=== PATIENT | female | born 1985 | race Two or more races ===

== ENCOUNTER → 2017-12-19 13:00 | Outpatient (CLI) | payer OTHER, SELFPAY ==
[2017-12-20 14:18] LABS: Chlamydia Trachomatis by PCR Negative (Negative); Neisserai gonorrhoeae by PCR Negative (Negative)
[2017-12-20 14:19] LABS: Probe Check PASS; Sample Adequacy Control PASS; Specimen Processing Control PASS
== END ==
PROVIDERS: Visit Provider Obstetrics & Gynecology
DX: Z36.85 Encounter for antenatal screening for Streptococcus B (principal)
CPT/HCPCS: 87491; 87591

== ENCOUNTER → 2018-07-05 17:22 | Outpatient (CLI) | payer OTHER, SELFPAY | PROVIDERS: Family Provider Family Medicine; PCP Family Medicine; Referring Provider Obstetrics & Gynecology; Visit Provider Obstetrics & Gynecology | DX: Z36.85 Encounter for antenatal screening for Streptococcus B (principal) | CPT/HCPCS: 87077; 87081; 87186 ==

== ENCOUNTER 2018-08-07 15:30 | Inpatient (IN) | payer SELFPAY, OTHER ==
[2018-08-07 15:40] VITALS: BMI 37.8
[2018-08-07] MEDS: Lactated Ringers 1,000 ML 50 ML IV (15:57)
[2018-08-07] MEDS: Oxytocin 30 units/NS 500 ml 30 UNITS/500 ML IV.SOLN IV (16:15)
[2018-08-07 16:25] LABS: Hematocrit 35.6 % (37-47); Hemoglobin 11.7 g/dl (12.0-15.0); Mean Corp Hgb Conc 32.9 g/gl (32-36); Mean Corpuscular Hgb 29.5 pg (27.0-32.0); Mean Corpuscular Volume 89.7 fL (81-99); Mean Platelet Vol. 10.2 fl (6.2-12.0); Platelet Count 268 K/mm3 (150-450); RBC Distribution Width CV 14.6 % (11.6-14.6); RBC Distribution Width SD 47.9 fl (35.1-43.9); Red Blood Count 3.97 M/mm3 (4.2-5.4); White Blood Count 9.7 K/mm3 (4.4-11.0)
[2018-08-07 16:26] LABS: Scan Indicated on CBC? Y/N NO
[2018-08-07 17:32] LABS: Prothrombin Time (Protime)PT. 13.4 SECONDS (11.7-14.9)
[2018-08-07 17:33] LABS: Partial Thromboplast Time 31.2 Seconds (24.1-36.2)
[2018-08-07 18:10] LABS: Protein, Urine (Random) 13.5 mg/dL (<11.9); Protein:Creat Ratio 122 mg/g CRE (0-200)
[2018-08-07 18:11] LABS: AST(SGOT) 18 U/L (15-37); Alanine Aminotransfer ALT/SGPT 19 U/L (13-56); Creatinine, Serum 0.68 mg/dL (0.55-1.02); EST Glomerular Filtration Rate 104 mL/min (>60); Est Glom Filt Rate - Afr Amer 126 mL/min (>60); Estimated Creatinine Clearance 95.52 ml/min; Uric Acid 5.3 mg/dL (2.6-6.0)
--- NOTE | 2018-08-07 20:20 | PCM.PN.BLA ---
Progress Note LABOR PROGRESS NOTE 40 4/7 wk female. Pitocin induction, AROM for PIH. Sitting up in rocking chair, appears comfortable States not feeling UCs. Open to epidural later but uncertain re plans for pain relief and will decide later AVSS BP 136/90 Pitocin @ 1 mIU, increasing prn to up to 10 mIU/min Labs reviewed WNL. AST/ALT wnl. Cr 0.7 Protein:Cr 122. Plts 268K IFM: 130-140s avg variability Accels. Occasional early decel noted, occasional variable. Irregular UCs. Mild, by IUPC. A/P: 40 4/7 wk induction PIH Category I tracing. Continue low dose pitocin overnight. Watch progress.
[2018-08-08] VITALS (12 sets, daily range): BP systolic 112–146; BP diastolic 62–98; PULSE 83–111; RESP 13–18; TEMP 36.9–37.4; O2SAT 96–100
--- NOTE | 2018-08-08 01:55 | PCM.PN.BLA ---
Progress Note LABOR PROGRESS NOTE Induction 40 5/7 wk PIH Pitocin at 7 mIU/min AVSS BP 146/99 IFM: 130-140 avg variability. Accels to 150s. UCs q 2-4 mins A/P: Catgory I tracing, HTN. Continue pitocin
[2018-08-08] MEDS: Lactated Ringers 1,000 ML 50 ML IV (11:23)
--- NOTE | 2018-08-08 17:10 | PCM.PN.OB ---
Subjective: Patient has progressed to 4-5 cm, 70% effaced and -2 station despite Pitocin at up to 20 mIU/min since early this morning. Cervix is unchanged versus exam at 1130 this morning so no change has been noted in 5-1/2-6 hours. Contractions are minimal despite 20 units of Pitocin and giving a 30-minute Pitocin rest mid afternoon. heart tones are reactive. No maternal fever is noted. Maternal exhaustion is present. Blood pressures have been intermittently elevated to the 140-50s over 90s but for the most part they are in the normal range. macrosomia and possible CPD suspected. I discussed the situation with the patient and her and given no prospect of delivery anytime soon we plan to proceed with section for failure to progress. I have discussed the risk and indications of this procedure including the possibility of bleeding, infection, and injury to surrounding structures such as bowel bladder and patient and her desire that we proceed. - Physical Exam Weight: 213 lb 13.574 oz Body Mass Index (BMI) 37.8 Intake and Output for Last 24 Hours 08/06/18 08/07/18 08/08/18 23:59 23:59 23:59 Intake Total 300 / 300 4048 / 4048 Output Total 200 / 200 950 / 950 Balance 100 / 100 3098 / 3098 Laboratory Tests Past 24 Hrs 08/07/18 08/07/18 08/07/18 15:52 15:52 15:57 PT 13.4 INR 1.0 APTT 31.2 Creatinine 0.68 Estim Creat Clear Calc 95.52 Est GFR (MDRD) Af Amer 126 Est GFR (MDRD) Non-Af 104 Uric Acid 5.3 AST 18 ALT 19 U Random Total Protein Urine Creatinine Protein/Creatinin Ratio Blood Type O POSITIVE Antibody Screen NEGATIVE 08/07/18 17:30 PT INR APTT Creatinine Estim Creat Clear Calc Est GFR (MDRD) Af Amer Est GFR (MDRD) Non-Af Uric Acid AST ALT U Random Total Protein 13.5 H Urine Creatinine 111.00 Protein/Creatinin Ratio 122 Blood Type Antibody Screen Medical Necessity - Tobacco Use Smoking Status: Never smoker
[2018-08-08] MEDS: Sodium Citrate/Citric Acid 30 ML UDC PO (17:13)
--- NOTE | 2018-08-08 17:15 | PCM.OPRPT ---
Report of Operation Date of Procedure: 08/08/18 Pre-Operative Diagnosis: Induced Hypertension, Failure to Progress, Bicornate Uterus Post-Operative Diagnosis: Induced Hypertension, Failure to Progress, Bicornate Uterus, Macrosomia, Cephalopelvic Disproportion Surgery/Procedure Performed:: Primary Low Transverse Cervical Section Description of Surgical Findings:: Viable male infant with Apgars of 8/9 and an occiput anterior presentation with clear amniotic fluid and normal three-vessel placenta with baby weighing 9 pounds 12-1/2 ounces. Uterus is bicornuate with baby residing in right uterus. Normal-appearing fallopian tubes and ovaries. synthetic staple extruder: Jerri Allan Type of Anesthesia:: Spinal - with duramorph Anesthesiologist: Dusty Hart Specimen's removed: Placenta to [facility] Drains: Morrison to straight drain Estimated Blood Loss (mL): 500 cc Fluids Replaced: Crystalloid Description of Procedure: Surgeon: Roldan Dee MD, FACOG Indication: This is a 33-year-old who presents for her first at 40w5d gestation for failure to progress and induced hypertension. care has otherwise been uneventful except for a bicornate uterus with the known to be in the right side. Over 24 hours since rupture of membranes the patient has progressed to 4-5 cm, 70% effaced and -2 station despite Pitocin at up to 20 mIU/min since early this morning. Cervix is unchanged versus exam at 1130 this morning so no change has been noted in 5-1/2-6 hours. Contractions are minimal despite 20 units of Pitocin and giving a 30-minute Pitocin rest mid afternoon. heart tones are reactive. No maternal fever is noted. Maternal exhaustion is present. Blood pressures have been intermittently elevated to the 140-50s over 90s but for the most part they are in the normal range. macrosomia and possible CPD suspected. I discussed the situation with the patient and her and given no prospect of delivery anytime soon we plan to proceed with section for failure to progress. The patient has been counseled regarding the risk and indications of this procedure including the possibility of bleeding infection and injury to surrounding structures such as bowel bladder. All questions were answered. Procedure: Patient was taken to the operating room where after spinal anesthesia was placed, the patient was prepped and draped in usual sterile fashion and a Morrison catheter was placed. The abdomen was entered through a Pfannenstiel incision and peritoneum was entered bluntly. After developing a bladder flap on the lower uterine segment a low transverse incision was made on the uterus and head was easily delivered onto the operative field the nose mouth and oropharynx were bulb suctioned. Subsequently a viable male was born with Apgars of 8/9. The was noted to cry move all extremities vigorously on the operative field. The umbilical cord was doubly clamped and ligated and handed to the nursery personnel who were present for the delivery. Placenta was delivered and noted to be 3 vessels and normal. Uterus was exteriorized and remaining placental tissue was removed. The uterus was then closed in 2 layers first with running locked 0 Vicryl suture followed by a second imbricating layer with 0 Vicryl suture. 0 Vicryl suture was then used in a horizontal mattress interrupted fashion to affect final hemostasis of the uterine incision line. Normal fallopian tubes and ovaries were visualized and the bicornate uterus was returned to the pelvis. Hemostasis was noted and rectus abdominis muscles were reapproximated in the midline with interrupted Number 0 Vicryl suture in a horizontal mattress fashion. Fascia was closed with running Number 1 PDS Strata fix suture. Subcutaneous tissue was irrigated with copious amounts of saline solution and then closed with running 3-0 Vicryl suture. Skin was closed with 4-0 monocryl suture in a running subcuticular fashion. Steri strips, telfa, and tape were placed across the incision. Pitocin and Methergine were given during the procedure to help with rather severe uterine atony. 1000 mg of Cytotec was also given rectally after the procedure was completed to help with postoperative atony. The patient tolerated the procedure well and was taken to the recovery room in satisfactory condition. Sponge, needle, and instrument counts were all reportedly correct. EBL was 750 cc. Ancef 2 gms IV and azithromycin 1 g IV were given prior to the procedure. Spicemen to Pathology: None Grafts/Implants Used: None - Complications None - Admit VTE Documentation VTE Present on Admission: Yes VTE Mechan Device Prophylaxis: SCD's VTE Pharm Prophylaxis ordered?: No
--- NOTE | 2018-08-08 17:21 | DCINST_ITS ---
Discharge Diet: No Restrictions Discharge Activity: May not drive while taking narcotic pain medications., May Shower, May Take a Tub Bath May resume sexual activity in: 4-6 weeks Lifting Restrictions: 20 pounds Additional Activity Instructions:: Nothing in the vagina for 4-6 weeks. You may return to work/school in 6 weeks. Call your doctor if your incision/area has: Continuous Slow Oozing, Sudden Increased Bleeding, Increased Pain/ Swelling, Increased Redness, Foul Smelling Discharge Call your doctor if you observe: Fever of 101 or Higher, Inability to urinate, Inability to have a bowel movement, Using more than one pad per hour Additional Instructions: If you experience any of the following, contact your healthcare provider. * Bleeding that soaks a pad every hour for 2 hours * Unrelieved incision or abdominal pain * Swelling, redness, discharge or bleeding from your incision or episiotomy site * Your incision begins to separate * Problems urinating (including inability to urinate or burning while urinating). * Visual changes * Severe headache * Flu-like symptoms * Pain or redness in one of both of your breasts * Pain, warmth, tenderness or swelling in your legs, especially the calf area * Frequent nausea and vomiting * Symptoms of depression or anxiety If you experience any of the following, call 911 or go to the nearest Emergency Room. * Chest pain * Problems breathing * Seizure activity * Partial or complete paralysis of a body part, slurred speech, weakness or drooping of the face, or a sudden inability to walk or hold your balance Allergies/Adverse Reactions: Allergies No Known Allergies Allergy (Verified 08/07/18 15:47) Medications to take at Discharge Vits [Prenatabs FA] 1 tablet PO DAILY 08/07/18 Docusate Sodium [Colace] 100 mg PO BID PRN PRN #60 cap 08/08/18 Oxycodone [Oxyir] 5 mg PO Q6H PRN PRN 7 Days #20 tab 08/08/18 The following prescriptions were given: Oxycodone [Oxyir] 5 mg PO Q6H PRN PRN 7 Days #20 tab PRN Reason: Severe Pain (6-04/18) Docusate Sodium [Colace] 100 mg PO BID PRN PRN #60 cap PRN Reason: Constipation Follow-Up: Call to make an appointment with your doctor for an incision check in 1-2 weeks. You will also need a 6 week post- follow up appointment. Test results from this visit will be discussed in further detail at your follow- up appointment, if applicable. Please Follow Up With: Roldan Dee MD - [phone] When: Call to make an appointment for an incision check in 2 weeks. Primary Care Physician: Matti Craig MD [Primary Care Provider] -
[2018-08-08] MEDS: Cefazolin 2 GM in 0.9% Normal Saline 100 ML IV (17:29)
[2018-08-08] MEDS: Methylergonovine 0.2 MG/ML Ampul IM (17:52)
[2018-08-08] MEDS: Oxytocin 30 units/NS 500 ml 30 UNITS/500 ML IV.SOLN 167 UNITS IV ×2 (17:52→18:50)
[2018-08-08] MEDS: miSOPROStol 200 MCG Tablet 1000 MCG RECTAL (18:40)
[2018-08-08] MEDS: Lactated Ringers 1,000 ML 100 ML IV (22:15)
[2018-08-08] MEDS: Cefazolin 1 GM/50 ML BAG IV (23:14)
[2018-08-09] VITALS (13 sets, daily range): BP systolic 100–119; BP diastolic 54–70; PULSE 78–117; RESP 15–18; TEMP 36.6–37.4; O2SAT 96–98
[2018-08-09] MEDS: Ketorolac 30 MG/ML Syringe IV ×4 (00:30→18:04)
[2018-08-09] MEDS: Lactated Ringers 1,000 ML 100 ML IV (05:12)
[2018-08-09] MEDS: Cefazolin 1 GM/50 ML BAG IV (06:27)
[2018-08-09 07:27] LABS: Hemoglobin 8.6 g/dl (12.0-15.0); Mean Corp Hgb Conc 33.1 g/gl (32-36); Mean Corpuscular Hgb 29.7 pg (27.0-32.0); Mean Corpuscular Volume 89.7 fL (81-99); Mean Platelet Vol. 9.4 fl (6.2-12.0); Platelet Count 189 K/mm3 (150-450); RBC Distribution Width CV 14.8 % (11.6-14.6); RBC Distribution Width SD 48.6 fl (35.1-43.9); White Blood Count 12.8 K/mm3 (4.4-11.0)
[2018-08-09 07:28] LABS: Scan Indicated on CBC? Y/N NO
--- NOTE | 2018-08-09 09:53 | PCM.PN.OB ---
Subjective: Patient without complaints. Tolerating diet well. Denies flatus. Minimal vaginal bleeding. Pain well controlled. - Physical Exam Vital Signs Temp Pulse Resp BP Pulse Ox 98.7 F 98 18 109/62 97 08/09/18 04:08 08/09/18 04:08 08/09/18 06:41 08/09/18 04:08 08/09/18 06:41 Oxygen Delivery Method Room Air Weight: 213 lb 13.574 oz Body Mass Index (BMI) 37.8 Intake and Output for Last 24 Hours 08/07/18 08/08/18 08/09/18 23:59 23:59 23:59 Intake Total 300 / 300 5621 / 5621 Output Total 200 / 200 1500 / 1500 450 / 450 Balance 100 / 100 4121 / 4121 -450 / -450 Laboratory Tests Past 24 Hrs 08/09/18 07:20 WBC 12.8 H RBC 2.90 L Hgb 8.6 L Hct 26.0 L MCV 89.7 MCH 29.7 MCHC 33.1 RDW 14.8 H RDW Differential 48.6 H Plt Count 189 MPV 9.4 Wound is clean, dry, intact. Good urine output. Hemoglobin okay and as expected. Medical Necessity - Tobacco Use Smoking Status: Never smoker Assessment/Plan Doing well postoperative day #1 status post primary section. Continuing present care. Will repeat CBC tomorrow to confirm stable.
[2018-08-09] MEDS: 0.9% Saline Lock 10 ML Syringe IV ×2 (11:37→18:04)
[2018-08-09] MEDS: oxyCODONE 5 MG Tablet PO (18:05)
[2018-08-10] MEDS: Ketorolac 30 MG/ML Syringe IV ×4 (00:19→18:15)
[2018-08-10] MEDS: 0.9% Saline Lock 10 ML Syringe IV ×4 (00:19→18:15)
[2018-08-10 01:50] VITALS: BP 118/65; PULSE 91; RESP 16; TEMP 36.6; O2SAT 96
[2018-08-10 05:08] LABS: Absolute Lymphocyte Count 1.69 X10^3/ul (0.83-4.51); Absolute Neutrophil Count 7.9 X10^3/uL (2.0-7.7); Basophil# 0.06 X10^3/uL; Basophil% 0.5 % (0-1); Eosinophil# 0.17 X10^3/uL; Eosinophils% 1.5 % (0-5); Hematocrit 25.8 % (37-47); Hemoglobin 8.4 g/dl (12.0-15.0); Lymphocyte # 1.69 X10^3/ul (4.0); Lymphocyte % 15.2 % (19-41); Mean Corp Hgb Conc 32.6 g/gl (32-36); Mean Corpuscular Hgb 30.1 pg (27.0-32.0); Mean Corpuscular Volume 92.5 fL (81-99); Mean Platelet Vol. 9.8 fl (6.2-12.0); Monocyte# 1.15 X10^3/uL; Monocyte% 10.3 % (0-10); Neutrophil # 7.93 X10^3/uL (2.7-7.7); Neutrophil % 71.2 % (47-70); Platelet Count 214 K/mm3 (150-450); RBC Distribution Width CV 14.8 % (11.6-14.6); RBC Distribution Width SD 47.4 fl (35.1-43.9); Red Blood Count 2.79 M/mm3 (4.2-5.4); White Blood Count 11.1 K/mm3 (4.4-11.0)
[2018-08-10 05:09] LABS: POSITIVE COUNT NO; POSITIVE DIFFERENTIAL NO; POSITIVE MORPHOLOGY NO
[2018-08-10 08:00] VITALS: BP 108/75; PULSE 78; RESP 18; TEMP 36.5; O2SAT 100
--- NOTE | 2018-08-10 09:22 | PCM.PN.OB ---
Subjective: Patient without complaints. Tolerating diet well. Breast-feeding is going well. Wants to stay another day. - Physical Exam Vital Signs Temp Pulse Resp BP Pulse Ox 97.7 F L 78 18 108/75 100 08/10/18 08:00 08/10/18 08:00 08/10/18 08:00 08/10/18 08:00 08/10/18 08:00 Oxygen Delivery Method Room Air Weight: 213 lb 13.574 oz Body Mass Index (BMI) 37.8 Intake and Output for Last 24 Hours 08/08/18 08/09/18 08/10/18 23:59 23:59 23:59 Intake Total 5621 / 5621 Output Total 1500 / 1500 2250 / 2250 600 / 600 Balance 4121 / 4121 -2250 / -2250 -600 / -600 Laboratory Tests Past 24 Hrs 08/10/18 04:52 WBC 11.1 H RBC 2.79 L Hgb 8.4 L Hct 25.8 L MCV 92.5 MCH 30.1 MCHC 32.6 RDW 14.8 H RDW Differential 47.4 H Plt Count 214 MPV 9.8 Immature Gran % (Auto) 1.300 H Neut % (Auto) 71.2 H Lymph % (Auto) 15.2 L [place] % (Auto) 10.3 H Eos % (Auto) 1.5 Baso % (Auto) 0.5 Absolute Neuts (auto) 7.9 H Absolute Lymphs (auto) 1.69 Total Counted Not Reportable Hemoglobin is stable. Good urine output. Minimal vaginal bleeding. Medical Necessity - Tobacco Use Smoking Status: Never smoker Assessment/Plan Doing well postoperative day #2 status post primary section for failure to progress. Continuing present care.
[2018-08-10 14:15] VITALS: BP 139/87; PULSE 80; RESP 18; TEMP 36.3; O2SAT 100
[2018-08-10] MEDS: Senna/Docusate Sodium 1 Tablet PO (16:16)
[2018-08-10 19:50] VITALS: BP 137/86; PULSE 90; RESP 18; TEMP 36.5; O2SAT 99
[2018-08-11 01:34] VITALS: BP 138/75; PULSE 78; RESP 16; TEMP 36.8; O2SAT 98
[2018-08-11] MEDS: oxyCODONE 5 MG Tablet PO ×2 (03:47→08:30)
[2018-08-11] MEDS: Senna/Docusate Sodium 1 Tablet PO (08:34)
[2018-08-11 08:47] VITALS: BP 150/90; PULSE 79; RESP 16; TEMP 36.6
--- NOTE | 2018-08-11 08:51 | PCM.PN.OB ---
Subjective: Patient without complaints except severe gas pains this morning. Has not used Tylenol or ibuprofen but was given 2 different doses of oxycodone. Previously had flatus and now unable to pass flatus. Otherwise doing well. Blood pressure has been elevated this a.m. presumed due gaseous discomfort. - Physical Exam Vital Signs Temp Pulse Resp BP Pulse Ox 98.2 F 78 16 138/75 H 98 08/11/18 01:34 08/11/18 01:34 08/11/18 01:34 08/11/18 01:34 08/11/18 01:34 Oxygen Delivery Method Room Air Weight: 213 lb 13.574 oz Body Mass Index (BMI) 37.8 Intake and Output for Last 24 Hours 08/09/18 08/10/18 08/11/18 23:59 23:59 23:59 Output Total 2250 / 2250 600 / 600 Balance -2250 / -2250 -600 / -600 Medical Necessity - Tobacco Use Smoking Status: Never smoker Assessment/Plan Doing well postoperative day #3 except for some gaseous distention presumably from narcotic pain medication. Will discontinue oxycodone and provide bowel stimulation. If able to pass gas later today we will discharge to home with routine instructions. Otherwise we will continue to monitor closely.
[2018-08-11] MEDS: Bisacodyl 10 MG Suppository RECTAL (12:28)
[2018-08-11] MEDS: Ibuprofen 600 MG Tablet PO (13:27)
[2018-08-11 13:29] VITALS: BP 154/79; PULSE 85; RESP 16; TEMP 36.7
--- NOTE | 2018-08-12 11:05 | DS.PCM_ITS ---
Discharge Summary Date of Admission: 08/07/18 Date of Discharge: 08/11/18 Summary: Admission diagnosis: Induced Hypertension, Bicornate Uterus Discharge diagnosis: Induced Hypertension, Failure to Progress, Bicornate Uterus, Macrosomia, Cephalopelvic Disproportion Procedure: Primary low transverse cervical section December on August 08, 2018 Findings: Viable male infant with Apgars of 8/9 an occiput anterior presentation with clear amniotic fluid and normal three-vessel placenta weighing 9 pounds 12- 1/2 ounces. Bicornate uterus was noted with baby in the right side of the uterus. Normal fallopian tubes and ovaries were visualized. History: This is a 33-year-old who presented at 40w4d gestation for induction for induced hypertension. care has otherwise been uneventful except for a bicornate uterus with the known to be in the right side. Physical exam: Unremarkable Hospital course: Over 24 hours after rupture of membranes the patient progressed to 4-5 cm, 70% effaced and -2 station despite Pitocin at up to 20 mIU/min since early this morning. Cervix maintained unchanged versus exam so no change had been noted in 5-1/2-6 hours. Contractions were minimal despite 20 units of Pitocin and giving a 30-minute Pitocin rest mid afternoon. heart tones were reactive. No maternal fever was noted. Maternal exhaustion was present. Blood pressures were intermittently elevated to the 140-50s over 90s but for the most part they her in the normal range. We decided to proceed with section for failure to progress. This was done without complication. Postoperatively the patient did well demonstrating stable hemoglobin and bowel function on postoperative day #2 at which time it was felt that she was ready for discharge. Discharge instructions and follow-up: Patient was instructed not to drive for several days, not to put anything in the vagina for a month. She was instructed also call the office for an appointment in 2 weeks and 6 weeks; she was also given a prescription for oxycodone and Colace to be used as needed at home - Physical Exam Vital Signs Temp Pulse Resp BP Pulse Ox 98.0 F 85 16 154/79 H 98 08/11/18 13:29 08/11/18 13:29 08/11/18 13:29 08/11/18 13:29 08/11/18 01:34 Oxygen Delivery Method Room Air Weight: 213 lb 13.574 oz Body Mass Index (BMI) 37.8 Intake and Output for Last 24 Hours 08/10/18 08/11/18 08/12/18 23:59 23:59 23:59 Output Total 600 / 600 Balance -600 / -600
--- NOTE | 2018-08-15 16:24 | NURSING ---
no answer for follow up phone call
== END 2018-08-11 15:40 | disposition home or self-care (01) | DRG 788 ==
PROVIDERS: Admitting Provider Obstetrics & Gynecology; Family Provider Family Medicine; PCP Family Medicine; Referring Provider Obstetrics & Gynecology; Visit Provider Obstetrics & Gynecology
DX: O13.3 Gestational [pregnancy-induced] hypertension without significant proteinuria, third trimester (principal); O75.81 Maternal exhaustion complicating labor and delivery; O75.89 Other specified complications of labor and delivery; O66.2 Obstructed labor due to unusually large fetus; O65.5 Obstructed labor due to abnormality of maternal pelvic organs; O34.03 Maternal care for unspecified congenital malformation of uterus, third trimester; Q51.3 Bicornate uterus; Z3A.40 40 weeks gestation of pregnancy; Z37.0 Single live birth
CPT/HCPCS: 59025; 59050; 82565; 82570; 84156; 84450; 84460; 84550; 85025; 85027; 85610; 85730; 86850; 86900; 99218; J7120; A4216; G0378; J0290; J2405

== ENCOUNTER → 2020-03-17 | Outpatient (CLI) | payer OTHER, SELFPAY ==
[2020-03-20 05:07] LABS: Chlamydia By Nucleic Acid AMP Negative (Negative)
[2020-03-20 15:40] LABS: HPV Reflexed? NOT INDICATED
[2020-03-20 15:51] LABS: Gonococcus By Nucleic Acid AMP Negative (Negative)
== END | disposition home or self-care (01) ==
LOC: LABSPEC 03-18 09:16
PROVIDERS: PCP Family Medicine; Visit Provider Obstetrics & Gynecology
DX: Z12.4 Encounter for screening for malignant neoplasm of cervix (principal); Z11.3 Encounter for screening for infections with a predominantly sexual mode of transmission
CPT/HCPCS: 87491; 87591; 88175; G0145

== ENCOUNTER → 2020-07-14 06:41 | Outpatient (CLI) | payer OTHER, SELFPAY ==
[2020-07-14 08:42] LABS: Glucose GTT-Gestational 1 Hr 214 mg/dL (<190)
[2020-07-14 08:54] LABS: Glucose GTT-Gestation. Fasting 78 mg/dL (<105)
[2020-07-14 09:36] LABS: Glucose GTT-Gestational 2 Hr 214 mg/dL (<165)
[2020-07-14 10:33] LABS: Glucose GTT-Gestational 3 Hr 70 L (<145)
== END ==
PROVIDERS: PCP Family Medicine; Referring Provider Obstetrics & Gynecology; Visit Provider Obstetrics & Gynecology
DX: O99.810 Abnormal glucose complicating pregnancy (principal); Z3A.00 Weeks of gestation of pregnancy not specified
CPT/HCPCS: 36415; 82951; 82952